=== PATIENT | female | born 1950 | race Caucasian/White ===

== ENCOUNTER → 2017-04-10 | Outpatient (CLI) | payer BC ==
--- NOTE | 2017-04-10 10:31 | REPMRS ---
Patient History The patient states she had a clinical breast exam in 03/2017. Family history of breast cancer in mother at age 50 or over. Digital Woman Screen Mammo: April 10, 2017 - Exam #: [id number] Bilateral CC and MLO view(s) were taken. Technologist: Leigh Ann Abdalla Technologist Prior study comparison: April 07, 2016, digital woman screen mammo performed at [facility]. April 06, 2015, digital woman screen mammo performed at [facility]. March 18, 2014, digital woman screen mammo performed at [facility]. FINDINGS: There are scattered fibroglandular densities. There has been no change in the appearance of the mammogram from the prior studies. There is a mild amount of scattered fibroglandular density which is fairly symmetric. There is no interval development of dominant mass, architectural distortion, or clustered microcalcification suggestive of malignancy. ASSESSMENT: BI-RADS/ACR category 1 mammogram. Negative. Recommendation Routine screening mammogram in 1 year (for women over age 40). This mammogram was interpreted with the aid of an FDA-approved computer-aided dectection system. Electronically Signed By: Lewis Melgoza MD 04/10/17 0068
--- NOTE | 2017-04-11 09:25 | DEXA ---
AP SPINE L1 - L4 1.082 -0.9 0.6 LT FEMUR TOTAL 0.948 -0.5 0.7 RT FEMUR TOTAL 0.981 -0.2 0.9 TOTAL BODY TOTAL OTHER DUAL FEMUR FRAX* ASSESSMENT Risk factors: None. 10 year probability of fracture Major osteoporotic fracture 9.4 % Hip fracture 1.1 % COMMENTS: Normal bone densitometry of the spine. There is low bone density of the hips. The density of the spine has decreased 7.0% since the initial exam on 2002. The spine density has decreased 2.4% since the most recent exam on 04/14/2014. The density of the left hip has decreased 1.3% since initial exam on 02/25/2003. The density of the left hip has decreased 0.6% since the most recent exam on . The density of the right hip has decreased 3.3% since initial exam on 2002. The density of the right hip has decreased 3.3% since the most recent exam on . FOLLOW-UP: Recommendation for the next bone density exam: 2 years. TOM
== END ==
LOC: M WHC 09:04
PROVIDERS: ATTEND Nurse Practitioner Women's Health
DX: Z12.31 Encounter for screening mammogram for malignant neoplasm of breast (principal); Z13.820 Encounter for screening for osteoporosis; Z78.0 Asymptomatic menopausal state
CPT/HCPCS: 77080; G0202

== ENCOUNTER → 2018-04-11 | Outpatient (CLI) | payer MEDICARE | LOC: M WHC 10:13 | DX: Z01.419 Encounter for gynecological examination (general) (routine) without abnormal findings (principal); Z12.31 Encounter for screening mammogram for malignant neoplasm of breast (principal); Z80.3 Family history of malignant neoplasm of breast; Z12.12 Encounter for screening for malignant neoplasm of rectum | CPT/HCPCS: 77067 ==

== ENCOUNTER → 2018-06-22 | Outpatient (CLI) | payer MEDICARE, SELFPAY, BC ==
[2018-06-22 11:28] LABS: BASO % 0.5 % (0.0-1.0); EOS # 0.1 10^3/uL (0.0-0.50); EOS % 1.3 % (0.0-3.0); HEMATOCRIT 37.9 % (36.0-47.0); HEMOGLOBIN 13.4 g/dl (12.0-15.5); IMMATURE GRANULOCYTE % 0.4 % (0-3.0); LYMPH % 26.5 % (24.0-44.0); MEAN CORPUSCULAR HEMOGLOBIN 32.5 pg (27.0-33.0); MEAN CORPUSCULAR HGB CONC 35.4 g/dl (32.0-36.5); MONO # 0.5 10^3/uL (0.0-0.8); MONO % 6.1 % (0.0-5.0); NEUTROPHILS % 65.2 % (36.0-66.0); PLATELET COUNT, AUTOMATED 216 10^3/uL (150-450); RED BLOOD COUNT 4.12 10^6/uL (4.00-5.40); RED CELL DISTRIBUTION WIDTH 13.1 % (11.5-14.5); WHITE BLOOD COUNT 7.7 10^3/uL (4.0-10.0)
[2018-06-22 11:47] LABS: ERYTHROCYTE SEDIMENTATION RATE 16 mm/hr (0-30)
[2018-06-22 12:07] LABS: ALBUMIN 3.9 GM/DL (3.2-5.2); ALBUMIN/GLOBULIN RATIO 1.15 (1.00-1.93); ALKALINE PHOSPHATASE 106 U/L (45-117); ALT/SGPT 37 U/L (12-78); ANION GAP 5 MEQ/L (8-16); AST/SGOT 20 U/L (7-37); BILIRUBIN,TOTAL 0.9 MG/DL (0.2-1.0); BLOOD UREA NITROGEN 12 MG/DL (7-18); C REACTIVE PROTEIN QUANTITATIV < 0.30 MG/DL (0.00-0.30); CALCIUM LEVEL 8.5 MG/DL (8.8-10.2); CARBON DIOXIDE LEVEL 29 MEQ/L (21-32); CHLORIDE LEVEL 108 MEQ/L (98-107); CREATININE FOR GFR 0.64 MG/DL (0.55-1.30); GLOMERULAR FILTRATION RATE > 60.0 (>45); GLUCOSE, FASTING 88 MG/DL (70-100); SODIUM LEVEL 142 MEQ/L (136-145); TOTAL PROTEIN 7.3 GM/DL (6.4-8.2)
[2018-06-24 00:09] LABS: TISSUE TRANSGLUTAMINASE IgA <2 U/mL (0-3)
== END ==
LOC: M LAB 10:48
DX: R19.7 Diarrhea, unspecified (principal)
CPT/HCPCS: 84443

== ENCOUNTER → 2018-07-03 | Outpatient (REF) | payer MEDICARE | LOC: M LAB REF 12:02 | DX: R19.7 Diarrhea, unspecified (principal) | CPT/HCPCS: 83630 ==

== ENCOUNTER 2018-09-22 13:09 | Emergency (ER) | payer MEDICARE ==
[2018-09-22] MEDS: LIDOCAINE 1% MDV 20ML VIAL SC (13:30)
[2018-09-22] MEDS: ADACEL/BOOSTRIX VACCINE (DIPHTH/PERTUSS/ACELL/TETANUS)0.5ML SYR (90715) IM (13:30)
[2018-09-22] MEDS: IBUPROFEN 800 MG TAB PO (14:13)
[2018-09-22] MEDS: NEOSPORIN OINT 0.9 GM PKT (FLOOR STOCK) TOP (14:13)
== END 2018-09-22 14:23 | disposition home or self-care (01) ==
LOC: M ED 13:09
DX: S61.204A Unspecified open wound of right ring finger without damage to nail, initial encounter (principal); W45.8XXA Other foreign body or object entering through skin, initial encounter; Y92.009 Unspecified place in unspecified non-institutional (private) residence as the place of occurrence of the external cause; Y93.E9 Activity, other interior property and clothing maintenance; I10 Essential (primary) hypertension; E78.5 Hyperlipidemia, unspecified; Z79.899 Other long term (current) drug therapy
CPT/HCPCS: 90715

== ENCOUNTER → 2019-04-18 | Outpatient (CLI) | payer MEDICARE ==
[~2019-04-18] MED LIST: DOXY-350 PO; LISI10TA4; SIMV10TA2
--- NOTE | 2019-04-18 12:48 | REPMRS ---
Patient History The patient states she had a clinical breast exam in 03/2019. Family history of breast cancer at age 50 or over in mother. No Hormone Replacement Therapy 3D TOMOSYNTHESIS WAS PERFORMED. Digital Woman Screen Mammo: April 18, 2019 - Exam #: [id number] Bilateral CC and MLO view(s) were taken. Technologist: Zahida Gayle, Technologist Prior study comparison: April 11, 2018, digital woman screen mammo performed at [facility]. April 10, 2017, digital woman screen mammo performed at [facility]. FINDINGS: The breast tissue is heterogeneously dense. This may lower the sensitivity of mammography. There has been no change in the appearance of the mammogram from the prior studies. There is a moderate amount of residual fibroglandular tissue which is fairly symmetric. There is no interval development of dominant mass, areas of architectural distortion, or clustered microcalcification typical of malignancy. Assessment: BI-RADS/ACR category 1 mammogram. Negative Mammogram. Recommendation Routine screening mammogram in 1 year (for women over age 40). This mammogram was interpreted with the aid of an FDA-approved computer-aided dectection system. Electronically Signed By: Christopher Fitzgerald MD 04/18/19 [id number]
== END ==
LOC: M WHC 11:19
PROVIDERS: ATTEND Nurse Practitioner Women's Health
DX: Z12.31 Encounter for screening mammogram for malignant neoplasm of breast (principal); Z80.3 Family history of malignant neoplasm of breast

== ENCOUNTER → 2020-04-22 | Outpatient (CLI) | payer MEDICARE ==
[~2020-04-22] MED LIST changes: -SIMV10TA2; +SIMV10TA21
--- NOTE | 2020-04-22 15:41 | REPMRS ---
Patient History The patient states she has not had a clinical breast exam in over a year. Family history of breast cancer at age 50 or over in mother. No Hormone Replacement Therapy Digital Woman Screen Mammo: April 22, 2020 - Exam #: [id number] Bilateral CC and MLO view(s) were taken. Technologist: Anne Jaquez Technologist Prior study comparison: April 18, 2019, bilateral digital woman screen mammo performed at [facility]. April 11, 2018, digital woman screen mammo performed at [facility]. April 10, 2017, digital woman screen mammo performed at [facility]. FINDINGS: The breast tissue is almost entirely fat. The Volpara volumetric breast density category is: A. There has been no change in the appearance of the mammogram from the prior studies. There is no interval development of dominant mass, architectural distortion, or grouped microcalcification typical of malignancy. 3-D tomosynthesis shows no additional findings. Assessment: BI-RADS/ACR category 1 mammogram. Negative Mammogram. Recommendation Routine screening mammogram of both breasts in 1 year (for women over age 40). This patient's Lifetime Breast Cancer RIsk is estimated at 9.2 %. This mammogram was interpreted with the aid of an FDA-approved computer-aided dectection system. Electronically Signed By: Lewis Melgoza MD 04/22/20 [id number]
== END ==
LOC: M WHC 14:46
PROVIDERS: ATTEND Nurse Practitioner Women's Health
DX: Z12.31 Encounter for screening mammogram for malignant neoplasm of breast (principal)

== ENCOUNTER → 2020-08-20 | Outpatient (REF) | payer MEDICARE | LOC: M LAB REF 17:47 | PROVIDERS: ATTEND Physician Assistant | DX: D23.5 Other benign neoplasm of skin of trunk (principal) | CPT/HCPCS: 11102; 11200; 88305; G0463 ==

== ENCOUNTER → 2025-06-19 | Outpatient (REF) | payer MEDICARE ==
[~2025-06-19] MED LIST changes: -DOXY-350 PO; +DOXY-440 PO; +LISI10TA22; -LISI10TA4
== END ==
LOC: M SFHCDERM 17:01
PROVIDERS: ATTEND Nurse Practitioner Family
DX: L72.9 Follicular cyst of the skin and subcutaneous tissue, unspecified (principal)

== ENCOUNTER 2025-07-17 06:57 | Day surgery (SDC) | payer MEDICARE ==
[~2025-07-17] VITALS: Ht 160 cm; Wt 71.9 kg
[~2025-07-17 06:57] MED LIST changes: +B-12100010 PO; +CITRTAB18 PO; +FAMO40TA3 PO; +JARD1TAB PO; -LISI10TA22; +LISI10TA22 PO; +METO1TAB32 PO; +MULTTAB61 PO; +SIMV20TA22 PO; +VITA100093 PO; +VITA500C24 PO
[2025-07-17 08:17] VITALS: TEMP 98.6
[2025-07-17 08:31] VITALS: BP 139/63; O2SAT 98
== END 2025-07-17 08:40 | disposition home or self-care (01) ==
LOC: M OPP 06:57
PROVIDERS: ATTEND Surgery
DX: Z12.11 Encounter for screening for malignant neoplasm of colon (principal); K64.8 Other hemorrhoids; K57.30 Diverticulosis of large intestine without perforation or abscess without bleeding; Z79.899 Other long term (current) drug therapy